=== PATIENT | female | born 1960 | race Asian ===

== ENCOUNTER 2018-06-19 13:54 | Emergency (ER) | payer MEDICARE, MEDICAID ==
[2018-06-19 14:12] LABS: URINE SOURCE CLEAN C
[2018-06-19 14:13] LABS: URINE BILIRUBIN NEGATIVE (NEGATIVE); URINE BLOOD TRACE (NEGATIVE); URINE GLUCOSE (UA) NEGATIVE (NEGATIVE); URINE KETONE NEGATIVE (NEGATIVE); URINE LEUKOCYTE ESTERASE MODERATE (NEGATIVE); URINE MICROSCOPIC INDICATED? YES; URINE NITRATE NEGATIVE (NEGATIVE); URINE PH 6.5 (4.6 - 8.0); URINE PROTEIN NEGATIVE (NEGATIVE); URINE UROBILINOGEN 0.2 E.U./dL (0.2 - 1.0)
[2018-06-19 14:25] LABS: URINE CLARITY HAZY (CLEAR); URINE COLOR YELLOW
[2018-06-19 14:26] LABS: URINE BACTERIA FEW /hpf (NONE SEEN); URINE EPITHELIAL CELLS OCCASIONAL /lpf (FEW); URINE RBC NONE SEEN /hpf (0-5)
--- NOTE | 2018-06-19 14:48 | Diagnostic Imaging Report ---
Right femur 2 views Indication: pain Comparison: Left femur x-ray the same day Findings: Cannulated screws are seen fixating possible old right femoral neck fracture. No evidence of hardware loosening or evidence of an acute fracture. Moderate right hip joint degenerative changes are noted. No focal soft tissue swelling. Mild Degenerative changes of the medial compartment of the right knee joint is also noted. There is nonspecific mild increased sclerosis of the medial tibial plateau also seen on the contralateral knee and probably due to degenerative etiology. Impression: Evidence of previous cannulated screw fixation of old right femoral neck fracture. No gross acute fracture identified. Moderate degenerative changes of the right hip joint. . In the setting of trauma, if clinical symptoms persist and there is continued concern for an occult fracture, follow up exams in 5-7 days is suggested.
--- NOTE | 2018-06-19 14:50 | Diagnostic Imaging Report ---
Left femur 2 views Indication: pain Comparison: Right femur x-ray the same day Findings: Minimal degenerative changes of the left hip joint are noted. No evidence of an acute fracture or dislocation. Mild degenerative changes right knee joint are noted with slight increased sclerotic density and possible old trauma of the medial tibial plateau. There is Slight flattening of the medial tibial plateau. No evidence of a knee effusion. Impression: No evidence of an acute fracture. Minimal degenerative changes of the left hip joint and mild degenerative changes of the left knee joint. Slight flattening of the medial tibial plateau possibly related to old trauma or degenerative etiology. If indicated dedicated left knee x-rays may also be obtained for further assessment. In the setting of trauma, if clinical symptoms persist and there is continued concern for an occult fracture, follow up exams in 5-7 days is suggested.
[2018-06-19] MEDS ORDERED: Sulfamethoxazole/TMP 800/160mg Tab PO ONE (14:55)
[2018-06-19 14:57] LABS: % BASOPHILS 0.1 % (0.0-2.0); % EOSINOPHILS 1.4 % (0.0-5.0); % LYMPHOCYTES 39.8 % (20.0-50.0); % MONOCYTES 5.6 % (2.0-10.0); % NEUTROPHILS 53.1 % (40.0-80.0); EOSINOPHILE ABSOLUTE 0.1 Th/cmm (0.1-0.4); HEMOGLOBIN 12.1 gm/dL (12-16); LYMPHOCYTE ABSOLUTE 2.2 Th/cmm (1.5-3.0); MEAN CORPUSCULAR HEMOGLOBIN 29.3 pg (27.0-31.0); MEAN CORPUSCULAR HGB CONC 33.6 pg (28.0-36.0); MEAN PLATELET VOLUME 6.5 fl; MONOCYTE ABSOLUTE 0.3 Th/cmm (0.3-1.0); NEUTROPHILE ABSOLUTE 2.9 Th/cmm (1.8-8.0); PLATELET COUNT 306 Th/cmm (150-400); RED BLOOD COUNT 4.14 Mil/cmm (3.80-5.10); RED CELL DISTRIBUTION WIDTH 13.2 % (11.5-20.0); WHITE BLOOD COUNT 5.5 Th/cmm (4.8-10.8)
[2018-06-19 15:13] LABS: ALB/GLOB RATIO 1.6 (1.0-1.8); ALBUMIN 3.9 gm/dL (3.7-5.3); ALKALINE PHOSPHATASE 86 U/L (34-104); BILIRUBIN,TOTAL 0.5 mg/dL (0.3-1.0); BUN - UREA NITROGEN 11 mg/dL (7-25); CALCIUM SERUM 9.1 mg/dL (8.6-10.3); CARBON DIOXIDE 26.8 mEq/L (21.0-31.0); CHLORIDE 106 mEq/L (98-107); CREATININE - SERUM 0.6 mg/dL (0.6-1.2); GFR AFRICAN-AMERICAN > 60.0 ml/min (>90); GFR NON AFRICAN-AMERICAN > 60.0 ml/min; GLUCOSE 91 mg/dL (70-105); MAGNESIUM 2.1 mg/dL (1.9-2.7); PHOSPHOROUS 4.5 mg/dL (2.5-5.0); POTASSIUM SERUM 3.8 mEq/L (3.5-5.1); SGOT 16 U/L (13-39); SGPT/ALT 15 U/L (7-52); SODIUM SERUM 141 mEq/L (136-145); TOTAL PROTEIN,SERUM 6.4 gm/dL (6.0-8.3)
[2018-06-19] MEDS ORDERED: Ciprofloxacin 400mg Premix PB 400 MG/200 ML BAG IV ONE ×2 (15:27→16:56)
[2018-06-19] MEDS ORDERED: Lactated Ringer 1,000 ML IV ONE (15:44)
--- NOTE | 2018-06-19 16:05 | ED Physician Chart ---
ED Chief Complaint/HPI - Patient Information Date Seen:: 06/19/18 Time Seen:: 14:11 Chief Complaint:: low back pain History of Present Illness:: low back pain Allergies:: Allergies Allergy/AdvReac Type Severity Reaction Status Date / Time No Known Allergies Allergy Verified 06/19/18 14:11 Vitals:: Vital Signs - 8 hr 06/19/18 14:11 Temp 98.5 F HR 68 RR 16 BP 153/76 O2 Sat % 98 Historian:: Patient Review:: Nurse's Note Reviewed, Transfer documents Reviewed ED Review of Systems - Review of Systems General/Constitutional: No fever, No chills, No weight loss, No weakness, No diaphoresis, No edema, No loss of appetite Skin: No skin lesions, No rash, No bruising Head: No headache, No light-headedness Eyes: No loss of vision, No pain, No diplopia ENT: No earache, No nasal drainage, No sore throat, No tinnitus Neck: No neck pain, No swelling, No thyromegaly, No stiffness, No mass noted Cardio Vascular: No chest pain, No palpitations, No PND, No orthopnea, No edema Pulmonary: No SOB, No cough, No sputum, No wheezing GI: No nausea, No vomiting, No diarrhea, No pain, No melena, No hematochezia, No constipation, No hematemesis G/U: No dysuria, No frequency, No hematuria Musculoskeletal: Back pain, Muscle pain Endocrine: No polyuria, No polydipsia Psychiatric: No prior psych history, No depression, No anxiety, No suicidal ideation Hematopoietic: No bruising, No lymphadenopathy Allergic/Immuno: No urticaria, No angioedema Neurological: No syncope, No focal symptoms, No weakness, No paresthesia, No headache, No seizure, No dizziness, No confusion, No vertigo ED Past Medical History - Past Medical History Obtainable: No Past Medical History: HTN, Seizures, Arthritis, Other (osteoporosis, rheumatoid arthritis) Psychiatricy History: Schizophrenia, Bipolar Family Medical History - Family Member Mother History Unknown: Yes ED Physical Exam - Physical Examination General/Constitutional: Awake, Well-developed, well-nourished, Alert, No distress, GCS 15, Non-toxic appearing, Ambulatory Head: Atraumatic Eyes: Lids, conjuctiva normal, PERRL, EOMI Skin: Nl inspection, No rash, No skin lesions, No ecchymosis, No lymphadenopathy Other Skin comments:: slightly dry ENMT: External ears, nose nl Neck: Nontender, Full ROM w/o pain, No nuchal rigidity, No bruit, No stridor Respiratory: Nl effort/Exclusion, Clear to Auscultation, No Wheeze/Rhonchi/Rales Cardio Vascular: RRR, No murmur, gallop, rubs, NL S1 S2 GI: No tenderness/rebounding/guarding, No organomegaly, No hernia, Normal BS's, Nondistended, No mass/bruits, No McBurney tenderness : No CVA tenderness Extremities: No tenderness or effusion, Full ROM, normal strength in all extremities, No edema, Normal digits & nails Other Extremities comments:: subjective complaint of bilateral thigh pain. NV intact. No evidence of compartment syndrome/DVT. Neuro/Psych: Alert/oriented, Normal sensory exam, Normal motor strength, Judgement/insight normal, Mood normal, Normal gait, No focal deficits Other Neuro/Psych comments:: negative straight leg raise Other Misc comments:: subjective low back pain on the left. ED Labs/Radiology/EKG Results - Lab Results Results: Laboratory Tests 06/19/18 06/19/18 06/19/18 14:00 14:47 14:47 WBC 5.5 RBC 4.14 Hgb 12.1 Hct 36.0 L MCV 87.0 MCH 29.3 MCHC Differential 33.6 RDW 13.2 Plt Count 306 MPV 6.5 Neutrophils % 53.1 Lymphocytes % 39.8 Monocytes % 5.6 Eosinophils % 1.4 Basophils % 0.1 D-Dimer Sodium 141 Potassium 3.8 Chloride 106 Carbon Dioxide 26.8 Anion Gap 12.0 BUN 11 Creatinine 0.6 Est GFR ( Amer) > 60.0 Est GFR (Non-Af Amer) > 60.0 BUN/Creatinine Ratio 18.3 Glucose 91 Calcium 9.1 Phosphorus 4.5 Magnesium 2.1 Total Bilirubin 0.5 AST 16 ALT 15 Alkaline Phosphatase 86 Total Protein 6.4 Albumin 3.9 Globulin 2.5 Albumin/Globulin Ratio 1.6 Urine Source CLEAN C Urine Color YELLOW Urine Clarity HAZY Urine pH 6.5 Ur Specific Nelson 1.010 Urine Protein NEGATIVE Urine Glucose (UA) NEGATIVE Urine Ketones NEGATIVE Urine Blood TRACE Urine Nitrate NEGATIVE Urine Bilirubin NEGATIVE Urine Urobilinogen 0.2 Ur Leukocyte Esterase MODERATE H Urine RBC NONE SEEN Urine WBC 6-10 H Ur Epithelial Cells OCCASIONAL Urine Bacteria FEW 06/19/18 14:47 WBC RBC Hgb Hct MCV MCH MCHC Differential RDW Plt Count MPV Neutrophils % Lymphocytes % Monocytes % Eosinophils % Basophils % D-Dimer < 100 L Sodium Potassium Chloride Carbon Dioxide Anion Gap BUN Creatinine Est GFR ( Amer) Est GFR (Non-Af Amer) BUN/Creatinine Ratio Glucose Calcium Phosphorus Magnesium Total Bilirubin AST ALT Alkaline Phosphatase Total Protein Albumin Globulin Albumin/Globulin Ratio Urine Source Urine Color Urine Clarity Urine pH Ur Specific Nelson Urine Protein Urine Glucose (UA) Urine Ketones Urine Blood Urine Nitrate Urine Bilirubin Urine Urobilinogen Ur Leukocyte Esterase Urine RBC Urine WBC Ur Epithelial Cells Urine Bacteria ED Assessment - Assessment General Assessment: spoke to Dr. Dunaway who is covering for Dr. Hines who is [place] of [place]. Dr. Dunaway agreed with my treatment and agreed with sending the patient back. ED Septic Shock - . Is Septic Shock (SBP<90, OR Lactate>4 mmol\L) present?: No - <6hrs of presentation: Vital Signs: Vital Signs - 8 hr 06/19/18 14:11 Temp 98.5 F HR 68 RR 16 BP 153/76 O2 Sat % 98 ED Reassessment (Disposition) - Reassessment Reassessment Condition:: Improved - Diagnosis Diagnosis:: Urinary tract infection Dehydration Possible rheumatoid or lupus flare up (treated with IV Solumedrol) Lupus Rheumatoid arthritis - Aftercare/Follow up Instructions Aftercare/Follow-Up Instructions:: Refer to Discharge Instructions - Patient Disposition Discharge/Transfer:: Custodial Care - SNF Condition at Disposition:: Stable, Improved
[2018-06-19 16:10] LABS: AMPHETAMINE URINE NEGATIVE (NEGATIVE); BARBITURATES URINE NEGATIVE (NEGATIVE); BENZODIAZEPINES QUAL URINE NEGATIVE (NEGATIVE); CANNABINOID THC NEGATIVE (NEGATIVE); COCAINE METABOLITE QUAL URINE NEGATIVE (NEGATIVE); METHADONE URINE NEGATIVE (NEGATIVE); METHAMPHETAMINES QUAL URINE NEGATIVE (NEGATIVE); OPIATES (MORPHINE) QUAL. URINE NEGATIVE (NEGATIVE); PHENCYCLIDINE (PCP) URINE NEGATIVE (NEGATIVE); TRICYCLICS (TCA) QUAL. URINE NEGATIVE (NEGATIVE)
[2018-06-19 16:34] LABS: ESR SEDIMENTATION SED RATE 20 mm/hr (0-30)
== END 2018-06-19 22:00 | disposition short-term general hospital (02) ==
LOC: ER 13:54
DX: M06.9 Rheumatoid arthritis, unspecified (principal); E86.0 Dehydration; N39.0 Urinary tract infection, site not specified; M32.9 Systemic lupus erythematosus, unspecified; M79.652 Pain in left thigh; M79.651 Pain in right thigh; I10 Essential (primary) hypertension; M19.90 Unspecified osteoarthritis, unspecified site; F20.9 Schizophrenia, unspecified; F31.9 Bipolar disorder, unspecified
CPT/HCPCS: 99284; 96365; 96375; 73552 ×2; 36415; 85379; 80307; 85025; 85652; 87086; 81001; 83735; 84100; 80053; 87081; 87040 ×2; J0744; J2930; Z7502